=== PATIENT | male | born 2000 | race Caucasian/White ===

== ENCOUNTER 2022-05-10 05:52 | Emergency (ER) | payer BC ==
[~2022-05-10] VITALS: Ht 180.3 cm; Wt 86.2 kg
[2022-05-10 06:03] VITALS: BP 121/62
--- NOTE | 2022-05-10 06:06 | NUR ---
TO BED AMBULATORY
--- NOTE | 2022-05-10 07:06 | NUR ---
Pt report given to Dannie BRYANT. Transfer of care at this time.
[2022-05-10] MEDS ORDERED: DOXY-690 PO (07:12)
[2022-05-10 08:45] VITALS: BP 114/78
== END 2022-05-10 08:47 | disposition home or self-care (01) ==
LOC: MED 05:52
DX: S01.111A Laceration without foreign body of right eyelid and periocular area, initial encounter (principal); N48.9 Disorder of penis, unspecified; R21 Rash and other nonspecific skin eruption; Z79.899 Other long term (current) drug therapy; W22.8XXA Striking against or struck by other objects, initial encounter; Y93.89 Activity, other specified; Y92.89 Other specified places as the place of occurrence of the external cause; Y99.8 Other external cause status
CPT/HCPCS: 12013; 81002; 86592; 99283